=== PATIENT | female | born 1980 | race Caucasian/White ===

== ENCOUNTER → 2021-10-09 13:11 | Outpatient (CLI) | payer BC, SELFPAY ==
--- NOTE | ~2021-10-09 | US_ITS ---
EXAMINATION: US OB limited DATE: 10/09/2021 13:36 INDICATION: Subchorionic hematoma follow-up. Estimated gestational age of 15 weeks and 4 days. TECHNIQUE: Real-time ultrasound of the pelvis was performed. COMPARISON: None. FINDINGS: There is a single fetus in vertex presentation. The placenta is anterior, 3.9 cm from the cervix. Fe aleja heart rate is 161 beats per minute (bpm). There is a 3.0 x 1.9 x 0.8 cm hypoechoic subchorionic h ematoma. The amniotic fluid volume is subjectively normal. IMPRESSION: 1. Single living fetus in vertex presentation. 2. Small subchorionic hematoma. Reviewed, dictated and finalized at location B. TUTOR
== END ==
PROVIDERS: Visit Provider Obstetrics & Gynecology Gynecology
DX: O36.8920 Maternal care for other specified fetal problems, second trimester, not applicable or unspecified (principal)
CPT/HCPCS: 76815

== ENCOUNTER 2021-10-17 08:54 | Observation (INO) | payer BC, SELFPAY ==
[2021-10-17 09:21] VITALS: BP 103/70; PULSE 44
--- NOTE | 2021-10-17 10:16 | OBADM ---
This patient, Christina Murillo, admitted to the OB room OB Post 117 for observation. Patient/family oriented to hospital policies and general routines including ID bracelet, bed and alarms, visiting hours, pain management, procedures, bathroom and other care routines, personal items, smoking policy, room service/diet, and visiting hours. Patient/Family are encouraged to report perceived risks to care and to ask questions if they do not understand what they are told or what they should do.
[2021-10-17 10:45] LABS: Add Urine Microscopic? NO; Appearance Urine Clear (Clear); Bilirubin Urine Negative (Negative); Blood Urine Negative (Negative); Color Urine Yellow (Yellow); Glucose Urine UA Negative (Negative); Ketones Urine Negative (Negative); Leukocyte Esterase Ur Negative LEU/UL (Negative); Nitrate Urine Negative (Negative); Protein Urine Negative (Negative); Specific Grav Ur 1.028 (1.001-1.035); Urobilinogen Urine Negative mg/dL (<2.0)
--- NOTE | 2021-10-23 06:53 | P.PNOB_ITS ---
OB - Triage/Final Diagnosis Visit Information Reason for evaluation: threatened labor and other (back pain) Comments/Additional reasons for admission: I have assessed the risk for this patient, Christina Murillo, and determined that she would benefit from observation care. Evaluation Laboratory results: Laboratory Tests 10/17/21 09:24 Urine Color Yellow Urine Appearance Clear Urine pH 6.0 Ur Specific [place] 1.028 Urine Protein Negative Urine Glucose (UA) Negative Urine Ketones Negative Ur Blood (Man) Negative Urine Nitrate Negative Urine Bilirubin Negative Urine Urobilinogen Negative Leukocyte Esterase Rfl Negative
== END 2021-10-17 11:30 | disposition home or self-care (01) ==
PROVIDERS: Admitting Provider Obstetrics & Gynecology Gynecology; Visit Provider Obstetrics & Gynecology Gynecology
DX: O47.03 False labor before 37 completed weeks of gestation, third trimester (principal); O99.892 Other specified diseases and conditions complicating childbirth; M54.9 Dorsalgia, unspecified; Z3A.16 16 weeks gestation of pregnancy
CPT/HCPCS: 81003; G0378; G0379

== ENCOUNTER 2021-12-29 09:52 | Observation (INO) | payer BC, SELFPAY ==
[2021-12-29 10:21] VITALS: BP 112/53; PULSE 54
[2021-12-29 11:48] VITALS: BMI 21.7
--- NOTE | 2021-12-29 11:48 | OBADM ---
This patient, Christina Murillo, admitted to the OB room OB Post 115 for observation. Patient/family oriented to hospital policies and general routines including ID bracelet, bed and alarms, visiting hours, pain management, procedures, bathroom and other care routines, personal items, smoking policy, room service/diet, and visiting hours. Patient/Family are encouraged to report perceived risks to care and to ask questions if they do not understand what they are told or what they should do.
--- NOTE | 2021-12-29 12:26 | PC.NURSE ---
Encouraged pt on discharge to eat and drink more. She states she has difficulty drinking a lot or eating much. Instructed she can eat small frequent meals. Instructed this will help keep contractions away. Verbalized understanding.
--- NOTE | 2022-01-02 08:21 | PM.OBTRLD ---
OB - Triage/Final Diagnosis Visit Information Reason for evaluation: threatened labor Comments/Additional reasons for admission: I have assessed the risk for this patient, Christina Murillo, and determined that she would benefit from observation care.
== END 2021-12-29 12:15 | disposition home or self-care (01) ==
PROVIDERS: Admitting Provider Obstetrics & Gynecology; Visit Provider Obstetrics & Gynecology
DX: O47.02 False labor before 37 completed weeks of gestation, second trimester (principal); Z3A.27 27 weeks gestation of pregnancy
CPT/HCPCS: G0378; G0379

== ENCOUNTER 2021-12-30 11:43 | Outpatient (CLI) | payer BC, SELFPAY ==
--- NOTE | ~2021-12-30 | US_ITS ---
EXAMINATION: US OB follow up DATE: 12/30/2021 12:57 INDICATION: Spotting in second trimester. TECHNIQUE: Real-time ultrasound of the pelvis was performed. COMPARISON: Ultrasound 10/09/2021 FINDINGS: There is a single living fetus in vertex presentation. The placenta is anterior, 8.2 cm from the cer vix. heart rate is 148 beats per minute (bpm). The amniotic fluid index is 19.2 cm, which is no rmal. The following biometric data were obtained: Biparietal diameter (BPD): 7.0 cm; head circumference (HC): 26.1 cm; abdominal circumference (AC): 24 .8 cm; femur length (FL): 4.9 cm. These measurements are discordant with low FL/AC and low FL/BPD. Estimated weight is 1160 g +/- 174 g, which correlates with the 67th percentile when 03/29/22 is used as estimated date of delivery. As single measurements, these parameters are each equal to the following estimated gestational ages w ith ranges of +/- 2 standard deviations: BPD: 28 weeks 1 days (26 weeks 0 days - 30 weeks 2 days). HC: 28 weeks 2 days (26 weeks 2 days - 30 weeks 3 days). AC: 29 weeks 0 days (26 weeks 6 days - 31 weeks 2 days). FL: 26 weeks 2 days (24 weeks 1 days - 28 weeks 3 days). estimated gestational age based solely on measurements from this exam is 28 weeks 0 days +/- 2 weeks 0 days. IMPRESSION: 1. Single living fetus in vertex presentation. 2. Estimated weight is 1160 g +/- 174 g, which correlates with the 67th percentile when 03/29/22 is used as estimated date of delivery. 3. Discordant biometrics with low FL/AC and low FL/BPD ratios. Reviewed, dictated and finalized at location A.
== END 2021-12-30 11:44 | disposition home or self-care (01) ==
PROVIDERS: Visit Provider Obstetrics & Gynecology Gynecology
DX: O26.852 Spotting complicating pregnancy, second trimester (principal); Z3A.28 28 weeks gestation of pregnancy
CPT/HCPCS: 76816

== ENCOUNTER → 2022-03-04 14:26 | Outpatient (CLI) | payer BC, SELFPAY ==
--- NOTE | ~2022-03-04 | US_ITS ---
EXAMINATION: US OB follow up DATE: 03/04/2022 14:52 INDICATION: Gestational size less than date TECHNIQUE: Real-time transabdominal obstetric ultrasound. FINDINGS: Comparison to multiple prior studies sequentially, with oldest reviewed study dated 022. There is a single living fetus in vertex presentation. The placenta is anterior without placenta pre via. VISHNU is normal measuring 17.2 cm. cardiac activity and movement is noted with a heart rate of 139 beats per minute. T he amniotic fluid volume is normal. The following biometric data were obtained: BPD: 89mm corresponds to gestational age 36 weeks 0 days. Head circumference: 321mm corresponds to gestational age 36 weeks 1 days. Abdominal circumference: 324mm corresponds to gestational age 36 weeks 2 days. Femur length: 67mm corresponds to gestational age 34 weeks 2 days. Estimated weight: 2754grams +/- 413grams, 34% minus Hadlock method.] IMPRESSION: 1. Single living intrauterine in vertex presentation with an estimated gestational age of 36 weeks 3 days LMP. Appropriate interval growth. 2. Normal placenta. 3: Normal amniotic fluid index measures 17.2 cm. Reviewed, dictated and finalized at location B. IMPRESSION: 1. Single living intrauterine in vertex presentation with an estimat ed gestational age of 36 weeks 3 days LMP. Appropriate interval growth. 2. Normal placenta. 3: Normal amniotic fluid index measures 17.2 cm.
== END ==
PROVIDERS: PCP Nurse Practitioner; Visit Provider Nurse Practitioner
DX: O36.5930 Maternal care for other known or suspected poor fetal growth, third trimester, not applicable or unspecified (principal); Z3A.36 36 weeks gestation of pregnancy
CPT/HCPCS: 76816

== ENCOUNTER 2022-03-11 11:16 | Outpatient (RCR) | payer BC, SELFPAY ==
--- NOTE | 2022-03-10 12:22 | PC.NURSE ---
SIMIN Henning updated on the pt not feeling movement. heart tones reactive. CNM ordered BPP with VISHNU.
[2022-03-10 12:55] VITALS: BP 108/79; PULSE 57
--- NOTE | 2022-03-10 13:11 | PC.NURSE ---
SIMIN Henning updated with BPP and VISHNU results. Discharge orders received with kick count instructions be given to the pt to do twice a day.
--- NOTE | ~2022-03-11 | US_ITS ---
EXAMINATION: US OB limited w BPP DATE: 03/10/2022 13:04 INDICATION: Decreased movement. TECHNIQUE: Real-time pelvic ultrasound was performed. COMPARISON: Ultrasound 03/04/2022 FINDINGS: There is a single living fetus in vertex presentation. The placenta is anterior. heart rate is 130 beats per minute (bpm). The amniotic fluid index is 13.5 cm, which is normal. Biophysical profile performed by the technologist: breathing (30 sec sustained breathing in 30 minutes): 2 out of 2 movement (3 gross body movements in 30 minutes): 2 out of 2 tone (one episode of sennngu-lbjoedhjo-ljlldfm limb movement): 2 out of 2 Amniotic fluid pocket (2 cm): 2 out of 2 Total score: 8 out of 8 IMPRESSION: 1. Single living fetus in vertex presentation. 2. Biophysical profile 8 out of 8. Reviewed, dictated and finalized at location B.
--- NOTE | ~2022-03-11 | US_ITS ---
EXAMINATION: US umbilical doppler DATE: 03/11/2022 12:42 INDICATION: Decreased movement. TECHNIQUE: Real-time ultrasound of the pelvis was performed. COMPARISON: Ultrasound 03/10/2022 FINDINGS: There is a single fetus in vertex presentation. The placenta is anterior. heart rate is 133 be ats per minute (bpm). The amniotic fluid volume is subjectively normal. Umbilical artery pulsed Doppler demonstrates a peak systolic to end-diastolic velocity ratio (S/D rat io) of 2.1 (5th percentile = 1.9, 95th percentile = 3.1). IMPRESSION: 1. Single living fetus in vertex presentation. 2. Normal umbilical artery Doppler. Reviewed, dictated and finalized at location B.
== END 2022-04-05 08:50 | disposition home or self-care (01) ==
LOC: ANHOBOP 11:16
PROVIDERS: PCP Nurse Practitioner; Visit Provider Obstetrics & Gynecology Gynecology
DX: O36.5930 Maternal care for other known or suspected poor fetal growth, third trimester, not applicable or unspecified (principal); Z3A.37 37 weeks gestation of pregnancy
CPT/HCPCS: 59025; 76815; 76819; 76820

== ENCOUNTER 2022-03-11 13:10 | Inpatient (IN) | payer BC, SELFPAY ==
[2022-03-11] VITALS (28 sets, daily range): BP systolic 99–129; BP diastolic 26–86; PULSE 45–125; TEMP 36.9–37.3; O2SAT 100; BMI 23.8
--- OUTSIDE RECORDS SUMMARY | 2022-03-11 13:33 | XMS_ITS ---
:1980 Author Care Team Providers Name Role Phone Rey Oro Primary Care Provider Unavailable Allergies Code Code System Name Reaction Severity Status Onset NKDA ? Medications Name Status Start Date Stop Date ? ? buspirone 15 mg tablet Active ? Not avail able Take 1 tablet twice a day by oral route. metoclopramide 10 mg tablet Active ? Not available Active ? Not available Wellbutrin Active ? Not available Wellbutrin XL 300 mg 24 hr tablet, extended release Active ? Not available Take 1 tablet every day by oral route. Problems Name Status Onset Date Source ? 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 Active 08/14/2021 ? Advanced Maternal Age Active 08/14/2021 ? Procedures Date Name Performed by ? ? Breast Augmentation W/implt Information not available ? Delivery Information not avai lable 09/11/2021 US, Obstetric, Transvaginal Information not available Results Lab Results Date Name Specimen Result Interpretation Description Value Range Status Address ? 09/11/2021 qnatal(R) Blood ? Number of 1 ? [facility] Fet[facility] - [place]: [id number] [address] [place] [address] ? ? Blood ? Advanced yes ? [facility] Maternal Age? [facility] -
[2022-03-11 14:08] LABS: Basophils Percent Auto 0.6 % (0.2-1.2); Eosinophils Percent Auto 0.3 % (0-4.4); Hematocrit 37.2 % (37.0-47.0); Immature Granulocyte Absolute 0.02 K/mm3 (0.00-0.031); Immature Granulocyte Percent A 0.3 % (0-0.5); Lymphocytes Absolute Auto 1.15 K/mm3 (0.9-3.2); Mean Corpuscular HGB Conc 34.9 g/dl (32-36); Mean Corpuscular Hemoglobin 35.2 pg (26-34); Mean Corpuscular Volume 100.8 fl (80-100); Monocytes Absolute Auto 0.5 K/mm3 (0.1-0.6); Monocytes Percent Auto 6.3 % (2.6-8.5); Neutrophils Absolute Auto 5.5 K/mm3 (1.3-6.7); Neutrophils Percent Auto 76.5 % (45.5-73.1); Platelet Count Result 210 k/mm3 (150-375); Red Blood Count 3.69 M/mm3 (4.2-5.4); Red Cell Distribution Width 13.2 % (11.5-14.5); White Blood Count 7.2 K/mm3 (4.5-10.0)
--- NOTE | 2022-03-11 14:13 | LDADM ---
This patient, Christina Murillo, was admitted to Labor/Delivery/Recovery 102 on 03/11/22 at 13:10. Plans for labor, pain management and were discussed with patient. Patient/family oriented to hospital policies and general routines including ID bracelet, bed and alarms, visiting hours, pain management, procedures, bathroom and other care routines, personal items, smoking policy, room service/diet and guest tray routines, security routines, and visiting hours. Patient/Family are encouraged to report perceived risks to care and to ask questions if they do not understand what they are told or what they should do. See OBIX for further documentation.
--- NOTE | 2022-03-11 17:08 | WPDANESEPP ---
Anes - Eval Pre Procedure Procedure: Labor epidural Date/Time: 03/11/22 17:08 Surgeon: Oscar Preop Diagnosis: Abd pain with contractions Pre Op Diagnosis: Induction of Labor Patient Data Age: 41 Gender: F Height: 1.57 m Weight: 59 kg Last Vital Signs Temp 99 F 03/11/22 14:30 Pulse 92 03/11/22 17:02 BP 110/26 L 03/11/22 17:02 O2 Del Method Room Air 03/11/22 14:09 Allergies Allergy/AdvReac Type Severity Reaction Status Date / Time iodixanol Allergy Unknown HIVES ON Verified 10/27/11 15:43 FACE AND BACK Home Medications Medication Instructions Recorded Confirmed Type prenat.vits,kimberley,kfx-cubq-coyhw 1 tablet PO DAILY 10/17/21 03/11/22 History sertraline 50 mg tablet 50 mg PO DAILY 02/28/22 03/11/22 History Laboratory Tests 03/11/22 03/11/22 03/11/22 13:59 13:59 13:59 WBC 7.2 K/mm3 K/mm3 (4.5-10.0) RBC 3.69 M/mm3 L M/mm3 (4.2-5.4) Hgb 13.0 g/dL g/dL (12.0-15.0) Hct 37.2 % % (37.0-47.0) MCV 100.8 fl H fl (80-100) MCH 35.2 pg H pg (26-34) MCHC 34.9 g/dl g/dl (32-36) RDW 13.2 % % (11.5-14.5) Plt Count 210 k/mm3 k/mm3 (150-375) MPV 11.0 fl H fl (7.4-10.4) Immature Gran % (Auto) 0.3 % % (0-0.5) Neut % (Auto) 76.5 % H % (45.5-73.1) Lymph % (Auto) 16.0 % L % (18.3-44.2) [place] % (Auto) 6.3 % % (2.6-8.5) Eos % (Auto) 0.3 % % (0-4.4) Baso % (Auto) 0.6 % % (0.2-1.2) Lymph # (Auto) 1.15 K/mm3 K/mm3 (0.9-3.2) [place] # (Auto) 0.5 K/mm3 K/mm3 (0.1-0.6) Eos # (Auto) 0.0 K/mm3 K/mm3 (0-0.3) Baso # (Auto) 0.0 K/mm3 K/mm3 (0.0-0.1) Abs Immat Gran (auto) 0.02 K/mm3 K/mm3 (0.00-0.031) Absolute Neuts (auto) 5.5 K/mm3 K/mm3 (1.3-6.7) Absolute Nucleated RBC 0.0 K/mm3 K/mm3 (0.0-0.012) Nucleated RBC % 0.0 % % (0.0-0.2) RPR Pending Blood Type A Positive Antibody Screen Negative Patient hx anesthesia problems: none Family hx anesthesia problems: none Results Review: All pre-operative results and documents have been reviewed as part of the pre-operative evaluation. [facility] Past Medical History Medical History Anxiety and not yet delivered Family History Family History Mother Hypertension Father Hypertension Grandparent Family history of malignant neoplasm of breast Social History Social History Smoking status: Never smoker Second hand tobacco smoke exposure: No Alcohol intake: never Substance use: never Spiritual care concerns: No Exam Day of Procedure 03/11/22 17:08 Patient weight: normal Heart: regular rate and rhythm Lungs: clear to auscultation Airway: Mallampati scale class II
[2022-03-11 19:45] LABS: HIV 1/2 Ab P24 Ag Result Negative (Negative)
[2022-03-11] MEDS: OXYTOCIN 30 UNITS/NS 500 ML 30 UNITS/500 ML BAG IV CONT (20:22)
[2022-03-11] MEDS: LACTATED RINGERS 1,000 ML 125 ML IV CONT (20:23)
[2022-03-12] VITALS (90 sets, daily range): BP systolic 95–143; BP diastolic 50–84; PULSE 35–69; RESP 12–18; TEMP 36.6–37.4; O2SAT 96–100
[2022-03-12] MEDS: ONDANSETRON INJ 4 MG/2 ML VIAL IV PUSH (00:08)
[2022-03-12] MEDS: LACTATED RINGERS 1,000 ML 125 ML IV CONT ×2 (00:09→02:13)
--- NOTE | 2022-03-12 04:14 | PM.OBDSVD ---
DS: Admitting Diagnosis Discharge Date 03/13/22 Admitting Diagnosis IUP 37 4/7 wks decreased movement DS: Discharge Diagnosis Discharge Diagnosis (1) , delivered: Code(s): O34.219 - Maternal care for unspecified type scar from previous delivery Status: Acute OB - DS: Summary OB Procedures : NST and Ultrasound OB Procedures Intrapartum: Spontaneous Vag Delivery OB Procedures: : None Peripartum Data Delivery Method: Natural Vaginal Laceration Description: Labial (right) complications: none Status at Discharge Functional status at discharge: independent ambulation Overall status at discharge: patient is progressing back to baseline Time Spent with Patient Time attestation: Total time spent providing and/or coordinating discharge services: DS: Data Data Completed and Pending Labs on day of discharge: Labs from last 24 hours 03/11/22 03/11/22 03/11/22 18:48 18:48 13:59 WBC RBC Hgb Hct MCV MCH MCHC RDW Plt Count MPV Immature Gran % (Auto) Neut % (Auto) Lymph % (Auto) [place] % (Auto) Eos % (Auto) Baso % (Auto) Lymph # (Auto) [place] # (Auto) Eos # (Auto) Baso # (Auto) Abs Immat Gran (auto) Absolute Neuts (auto) Absolute Nucleated RBC Nucleated RBC % RPR Hepatitis Be Antibody Pending HIV 1&2 Ab/P24 Ag 4thGn Negative Blood Type A Positive Antibody Screen Negative 03/11/22 03/11/22 13:59 13:59 WBC 7.2 RBC 3.69 L Hgb 13.0 Hct 37.2 MCV 100.8 H MCH 35.2 H MCHC 34.9 RDW 13.2 Plt Count 210 MPV 11.0 H Immature Gran % (Auto) 0.3 Neut % (Auto) 76.5 H Lymph % (Auto) 16.0 L [place] % (Auto) 6.3 Eos % (Auto) 0.3 Baso % (Auto) 0.6 Lymph # (Auto) 1.15 [place] # (Auto) 0.5 Eos # (Auto) 0.0 Baso # (Auto) 0.0 Abs Immat Gran (auto) 0.02 Absolute Neuts (auto) 5.5 Absolute Nucleated RBC 0.0 Nucleated RBC % 0.0 RPR Pending Hepatitis Be Antibody HIV 1&2 Ab/P24 Ag 4thGn Blood Type Antibody Screen Discharge Plan Discharge Attending physician on discharge: Dayna Moore Discharging Clinician: Dayna Moore Patient Disposition: Home, Self-Care Activity: may shower and pelvic rest Diet: regular Patient Instructions: Antibiotic Form Stand Alone Forms: General Discharge Information Follow-up/Referrals: Dayna Moore MD [Physician] - 6 Weeks Discharge Medications: New norethindrone (contraceptive) 0.35 mg tablet 0.35 mg PO DAILY Qty: 84 3RF Continued prenat.vits,kimberley,ead-cbyl-xkbgt Tablet 1 tablet PO DAILY sertraline 50 mg Tablet 50 mg PO DAILY Date of admission: 03/11/22 13:10 Primary Care Provider: Anastasia,Nayana Jacobs Admitting Provider: Dayna Moore Attending physician on admission: Dayna Moore Condition: Stable
--- NOTE | 2022-03-12 04:16 | PM.OBPRVD ---
OB - Delivery Note Procedure Delivery date: 03/12/22 Procedure: Events: Previous Delivery and Other (persistent decreased movement) Induction method: AROM and Per Pitocin Protocol Delivery monitor: External FHT and Internal Uterine Route of delivery: Laceration Description: Labial Delivery repair: vicryl (3-0) Specimen: Yes (placenta) Quantitative Blood Loss (ml): 100 Anesthesia type: Epidural Disposition: Floor Baby Date of : 03/12/22 Weeks of gestation at delivery: 37 Infant gender: Male Weight (pounds): 6 presentation: vertex position: Right Occiput Anterior Placenta delivery description: Spontaneous Cord Vessel Description: 3 Vessels and Nuchal Cord score one minute: 8 score five minutes: 9
[2022-03-12] MEDS: OXYTOCIN 30 UNITS/NS 500 ML 30 UNITS/500 ML BAG 125 UNITS IV CONT (04:41)
--- NOTE | 2022-03-12 07:08 | OBPPTRN ---
Patient transferred to post room #290 via wheelchair. Support person present. Oriented to unit, room, information board, rooming in, admission packet and security measures. Patient verbalizes understanding.
[2022-03-12] MEDS: SERTRALINE HCL 50 MG TABLET PO (10:35)
[2022-03-12] MEDS: MULTIVIT/MIN/PREN/FOL AC/IRON TABLET 1 TAB PO (10:35)
[2022-03-12 12:49] LABS: Rapid Plasma Reagin Non-Reactive (NonReactive)
--- NOTE | 2022-03-12 14:53 | PC.NURSE ---
1335 - Mother verbalizes she is able to independently latch with appropriate positioning/alignment. She denies any nipple discomfort and is responsively . is currently meeting outcomes for weight, output, jaundice and feeding frequencies of 8-12 times in 24 hours. Mother declines any additional assistance/education at this time. Mother is encouraged to call for assistance if her doesn?t latch or there is discomfort with latching. Mother voiced understanding of information shared and mom and baby guide reviewed for additional resource information . Reported to the primary RN.
[2022-03-13 04:00] VITALS: BP 100/62; PULSE 45; RESP 16; TEMP 36.6
[2022-03-13 05:16] LABS: Hematocrit 33.3 % (37.0-47.0); Hemoglobin 11.2 g/dL (12.0-15.0)
[2022-03-13 07:45] VITALS: BP 103/64; PULSE 47; RESP 16; TEMP 37.3; O2SAT 97
[2022-03-13 08:00] VITALS: PULSE 47; RESP 16; O2SAT 97
[2022-03-13] MEDS: SERTRALINE HCL 50 MG TABLET PO (08:17)
[2022-03-13] MEDS: DOCUSATE SODIUM 100 MG CAPSULE PO (08:17)
[2022-03-13] MEDS: MULTIVIT/MIN/PREN/FOL AC/IRON TABLET 1 TAB PO (08:17)
--- NOTE | 2022-03-13 10:15 | PC.NURSE ---
Patient was given the opportunity to view the discharge video Mother & Baby Care, The First Two Weeks and to ask questions. Patient declined viewing the video and has been given the mother/baby guide for home reference.
--- NOTE | 2022-03-13 11:02 | PM.OBPNVD ---
OB - PN: Subj Subjective Date/time seen: 03/13/22 11:02 Patient comments: no complaints and pain well controlled baby status: doing well OB - PN: Obj Data Labs CBC & Chem 7: 03/13/22 03:55 Labs: Laboratory Results - last 24 hr 03/11/22 03/13/22 13:59 03:55 Hgb 11.2 L Hct 33.3 L RPR Non-reactive OB - PN A/P Plan day: 1 Plan: routine care, discharge home, follow up 6 weeks and other (plans micronor) Time Spent With Patient Time: Total time spent is greater than 50% in coordination of care (as documented) at patient's floor/unit and/or counseling patient: Exam : Bimanual exam- vagina & uterus: other (Uterus firm, nt @U)
--- NOTE | 2022-03-13 11:12 | WPDANLDPN2 ---
Anes-Prog Note L&D Date/Time: 03/13/22 11:12 Neuraxial method: epidural Epidural/Spinal procedure site: clean & non-tender Neuro status: Neuro function grossly intact. Vital Signs: Last Vital Signs Temp 99.1 F 03/13/22 07:45 Pulse 47 L 03/13/22 07:45 Resp 16 03/13/22 07:45 BP 103/64 03/13/22 07:45 Pulse Ox 97 03/13/22 07:45 O2 Del Method Room Air 03/12/22 19:50 Pain score (VAS): 0 I/O: Intake & Output 03/12/22 03/13/22 03/13/22 23:59 07:59 15:59 Intake Total 500 Balance 500 Post-procedural complaints: none Patient feedback: Patient satisfied with anesthetic care.
[2022-03-13 12:53] LABS: Hepatitis B Surface Antigen Negative (Negative)
[2022-03-15 10:35] LABS: Hepatitis Be Antibody Nonreactive
[2022-03-15 10:50] VITALS: BP 110/74; PULSE 49; RESP 16; TEMP 37.2; O2SAT 100
== END 2022-03-13 16:49 | disposition home or self-care (01) | DRG 807 ==
LOC: ANHLDR 03-12 04:16 → ANHOB2 03-12 07:45
PROVIDERS: Admitting Provider Obstetrics & Gynecology Gynecology; PCP Nurse Practitioner; Visit Provider Obstetrics & Gynecology Gynecology
DX: O36.8130 Decreased fetal movements, third trimester, not applicable or unspecified (principal); Z37.0 Single live birth; Z3A.37 37 weeks gestation of pregnancy; O69.81X0 Labor and delivery complicated by cord around neck, without compression, not applicable or unspecified; O34.211 Maternal care for low transverse scar from previous cesarean delivery
CPT/HCPCS: 36415; 85014; 85018; 85025; 86592; 86703; 86707; 86850; 86900; 86901; 87340; 88307; A9270; G0432; J2405; J2590; J2795; J7120

== ENCOUNTER 2023-12-29 14:24 | Outpatient (CLI) | payer BC, SELFPAY ==
--- NOTE | ~2023-12-29 | MMUS_ITS ---
EXAMINATION: MM diag darwin implant BI w hank, US breast BI complete HISTORY: Palpable left breast lump TECHNIQUE: Additional 3-D tomosynthesis images of the breasts were performed and synthetic 2-D images were generated. CAD analysis was submitted and interpreted. High resolution bilateral complete breas t ultrasound was performed. COMPARISON: 07/07/2016 BREAST PARENCHYMAL COMPOSITION: Dense: The breasts are extremely dense, which lowers the sensitivity of mammography. FINDINGS: MAMMOGRAPHIC FINDINGS: There are bilateral breast implants. There is a tissue marker in the upper outer quadrant of the righ t breast adjacent to the implant. This likely corresponds to previous biopsy proven benign fibroadeno ma from 2011. No suspicious masses, calcifications or architectural distortion in either breast to goldstein ggest malignancy. ULTRASOUND: Complete bilateral US of all 4 quadrants of the breasts and retroareolar region was reviewed. Right breast: At 12:00, 4 cm from the nipple is an parallel oriented hypoechoic mass adjacent to the implant measuring 2.5 x 2.2 x 0.8 cm corresponding to biopsy-proven benign fibroadenoma seen on prior ultrasound dated 12/01/2011 when it measured 3.8 x 3.1 x 1.5 cm. No other discrete mass in the right breast. Left breast: Normal heterogeneous echotexture without focal solid or cystic mass. IMPRESSION: 1. No evidence for malignancy in either breast. Benign finding. 2. Routine yearly screening mammogram and regular clinical breast examination are recommended. BI-RADS Category 2: Benign finding(s). Reviewed, dictated and finalized at location A. IMPRESSION: 1. No evidence for malignancy in either breast. Benign finding. 2. Routine yearly screening mammogram and regular clinical breast examination a re recommended. BI-RADS Category 2: Benign finding(s).
== END 2023-12-29 14:25 ==
PROVIDERS: PCP Nurse Practitioner; Visit Provider Nurse Practitioner
DX: N63.20 Unspecified lump in the left breast, unspecified quadrant (principal); R92.8 Other abnormal and inconclusive findings on diagnostic imaging of breast
CPT/HCPCS: 76641; 77062; 77066; G0279

== ENCOUNTER 2024-03-14 15:15 | Outpatient (CLI) | payer BC, SELFPAY ==
--- NOTE | ~2024-03-14 | US_ITS ---
EXAMINATION: US pelvic complete DATE: 03/14/2024 15:34 INDICATION: Abnormal uterine bleeding. TECHNIQUE: Multiple transabdominal sonographic images of the pelvis were obtained. COMPARISON: None. FINDINGS: The uterus measures 8.3 x 4.0 x 5.1 cm. There is no free fluid in the pelvis. The endometrial complex measures 1.1 cm in thickness. The right ovary measures 2.2 x 1.3 x 1.6 cm. The left ovary measures 3 .3 x 2.7 x 2.5 cm. There is normal vascular flow in the ovaries. IMPRESSION: 1. Normal pelvis. Reviewed, dictated and finalized at location E. IMPRESSION: 1. Normal pelvis.
== END 2024-03-14 15:16 ==
PROVIDERS: PCP Obstetrics & Gynecology Gynecology; Visit Provider Obstetrics & Gynecology Gynecology
DX: N93.8 Other specified abnormal uterine and vaginal bleeding (principal)
CPT/HCPCS: 76856